=== PATIENT | female | born 1970 | race Caucasian/White ===

== ENCOUNTER 2021-10-06 17:32 | Emergency (ER) | payer MEDICAID ==
[~2021-10-06] VITALS: Ht 154.9 cm; Wt 91.0 kg
[2021-10-06] MEDS ORDERED: LORAZEPAM 2MG/ML CPJ IV ONE (19:45)
[2021-10-06] MEDS ORDERED: MAGNESIUM/ALUMINUM HYDROXIDE/SIMETHICONE 30ML UDC PO ONE (19:45)
[2021-10-06] MEDS ORDERED: GLUCAGON,HUMAN RECOMBINANT 1MG/VIAL IV ONE (19:45)
[2021-10-06] MEDS ORDERED: VISCOUS LIDOCAINE 2% 15 ML UDC MM ONE (20:00)
[2021-10-06] MEDS ORDERED: PROT20 MT (21:47)
[2021-10-06] MEDS ORDERED: ONDA4TAB5 MT (21:47)
[2021-10-06] MEDS ORDERED: MAG-55 MT (21:47)
[2021-10-06 22:18] VITALS: BP 124/68
== END 2021-10-06 22:19 | disposition home or self-care (01) ==
LOC: ER 17:32
DX: T18.128A Food in esophagus causing other injury, initial encounter (principal); R11.2 Nausea with vomiting, unspecified; I49.8 Other specified cardiac arrhythmias; I10 Essential (primary) hypertension; E78.00 Pure hypercholesterolemia, unspecified; X58.XXXA Exposure to other specified factors, initial encounter; Y93.89 Activity, other specified; Y92.9 Unspecified place or not applicable; Z88.0 Allergy status to penicillin; Z98.890 Other specified postprocedural states
CPT/HCPCS: 71045; 93005; 96374; 96375; 99284; J1610; J2060